=== PATIENT | female | born 1975 | race Asian ===

== ENCOUNTER 2020-08-19 13:09 | Outpatient (RCR) | payer MEDICARE, SELFPAY ==
[2020-08-19] MEDS: COVID-19 VACC, MRNA(PFIZER)/PF 30 MCG/0.3 ML SYRINGE IM (17:52)
[2020-09-09] MEDS: COVID-19 VACC, MRNA(PFIZER)/PF 30 MCG/0.3 ML SYRINGE IM (17:41)
== END 2020-11-15 23:59 ==
LOC: IMMUN 13:09
PROVIDERS: Visit Provider Family Medicine
DX: Z23 Encounter for immunization (principal)
CPT/HCPCS: 0001A; 0002A; 91300